=== PATIENT | male | born 1935 | race Hispanic/Latino ===

== ENCOUNTER 2019-03-21 19:08 | Observation (INO) | payer MEDICARE, BC ==
--- NOTE | 2019-03-21 19:42 | RAD ---
TWO VIEW CHEST: 03/21/19 HISTORY: Chest tightness. The lung mares are clear. No infiltrate or vascular congestion. Heart and mediastinum unremarkable. Old right sided rib fractures. IMPRESSION: No acute finding. POS: [facility]
[2019-03-21 19:50] LABS: #Basophils 0.1 thou/uL (0.0-0.2); #Eosinphils 0.2 thou/uL (0.0-0.7); #Monocytes 0.5 thou/uL (0.11-0.59); #Neutrophils 4.4 thou/uL (1.40-6.50); %Basophils 0.8 % (0.0-1.0); %Lymphocytes 37.1 % (21.0-51.0); %Neutrophils 54.1 % (42.0-75.0); Hemoglobin 12.1 g/dL (14.0-18.0); Mean Corpuscular HGB CONC 33.1 g/dL (32.0-36.0); Mean Corpuscular Hemoglobin 28.9 pg (27.0-31.0); Mean Corpuscular Volume 87.3 fL (78.0-98.0); Mean Platelet Volume 9.7 fL (7.4-10.4); Platelet Count 143 thou/uL (130-400); RBC Distribution Width 14.8 % (11.5-14.5); White Blood Cell (WBC) Count 8.1 thou/uL (4.8-10.8)
[2019-03-21 20:12] LABS: ALT (SGPT) 18 U/L (8-55); AST (SGOT) 22 U/L (5-34); Albumin 4.4 g/dL (3.4-4.8); Alkaline Phosphatase 63 U/L (40-150); Anion Gap 14 mmol/L (10-20); BUN (Urea Nitrogen) 15 mg/dL (8.4-25.7); Bilirubin, Total 0.3 mg/dL (0.2-1.2); CK (CPK) 225 U/L (30-200); Calc. Creatinine Clearance 0 mL/min (70-130); Calcium 9.2 mg/dL (7.8-10.44); Carbon Dioxide 23 mmol/L (23-31); Chloride 103 mmol/L (98-107); Estimated GFR-MDRD 62; Globulin 3.4 g/dL (2.4-3.5); Glucose 147 mg/dL (83-110); Lipase 30 U/L (8-78); Potassium 3.9 mmol/L (3.5-5.1); Protein, Total 7.8 g/dL (5.8-8.1); Sodium 136 mmol/L (136-145)
[2019-03-21] MEDS ORDERED: Aspirin Chewable 81 MG TAB ONE (20:18)
[2019-03-21 21:48] LABS: Troponin I Less than 0.010 ng/mL (< 0.028)
[2019-03-21 22:56] VITALS: BMI 30.8
[2019-03-22] MEDS: Acetaminophen 325 MG TAB PO PRN ×2 (02:42→17:33)
[2019-03-22 02:55] LABS: Troponin I Less than 0.010 ng/mL (< 0.028)
[2019-03-22] MEDS ORDERED: Dextrose 50% Abboject 50 ML SYRINGE SLOW IVP PRN (04:02)
[2019-03-22] MEDS ORDERED: Insulin Regular 300 UNITS/3 ML VIAL SC PRN (04:02)
[2019-03-22] MEDS ORDERED: Dextrose 5% in Water 1,000 ML IV PRN (04:02)
--- NOTE | 2019-03-22 04:54 | HP ---
PRIMARY CARE PROVIDER: Dr. James Eng. CHIEF COMPLAINT: Chest pain. HISTORY OF PRESENT ILLNESS: Mr. Gallo is a pleasant 83-year-old gentleman, who was seen at [facility] on March 22, 2019. He reports that he used to see Dr. Sepulveda for Cardiology in the early . He reports having cardiac catheterization. He was told that he had 50% to 65% blockages in some of the vessels. He did not need stents at the time. He was lost to Cardiology for followup. He got into an argument with his grandson around 6:30 p.m. yesterday. He reports that following the argument, he started having chest pain. He describes it as across his chest, dull, pressure-like, accompanied by shortness of breath, no known relieving factors. He denies any fevers or chills. Chest pain appears to have lasted until around 10:00 p.m. It was nonradiating. It was not accompanied by nausea or vomiting. REVIEW OF SYSTEMS: All other systems reviewed and found to be negative. PAST MEDICAL HISTORY: Diabetes mellitus type 2, gastroesophageal reflux disease, hypertension, glaucoma, and obstructive sleep apnea syndrome. PAST SURGICAL HISTORY: Bilateral cataract surgery. PSYCHIATRIC HISTORY: Anxiety and depression. SOCIAL HISTORY: The patient denies tobacco use or recreational drug use. He reports weekly alcohol use. CODE STATUS: I discussed his code status. He is full code. FAMILY HISTORY: Significant for heart murmur in his younger brother. ALLERGIES: NO KNOWN DRUG ALLERGIES. CURRENT MEDICATIONS: 1. Lantus insulin 28 units 2 times a day. 2. Lovastatin 20 mg at bedtime. 3. Allopurinol 300 mg daily. 4. Losartan 100 mg daily. 5. Oxybutynin 5 mg 2 times a day. 6. Carvedilol 25 mg daily. 7. Amlodipine 5 mg at bedtime. 8. Omeprazole 20 mg daily. 9. Metformin 1000 mg 2 times a day. 10. Dorzolamide/timolol eye drops 2 times a day. 11. Latanoprost eyedrops at bedtime. 12. Refresh eye drops 4 times a day. PHYSICAL EXAMINATION: GENERAL: On examination, Mr. Gallo is awake and alert, not in acute distress. He is obese, with a BMI of 30.8. VITAL SIGNS: Blood pressure is 148/68, pulse is 61, respiratory rate 16, and oxygen saturation 98% on room air. He is afebrile. HEENT: Eyes, no scleral icterus, no conjunctival pallor. ENT: Moist mucosal membranes. No oropharyngeal erythema or exudates. NECK: Supple, nontender, trachea is midline. RESPIRATORY: Accessory muscles of breathing are not active. Chest wall movements are symmetric bilaterally. LUNGS: Clear to auscultation without wheeze, rhonchi, or crepitations. CARDIOVASCULAR: S1 and S2 are heard, regular. Peripheral pulses palpable. No carotid bruit. No pericardial rub. ABDOMEN: Soft, nontender, bowel sounds are heard. NEUROLOGIC: Cranial nerves 2 through 12 intact, deep tendon reflexes 2+. MUSCULOSKELETAL: Power is 5/5 in all 4 extremities. SKIN: No rashes or subcutaneous nodules. LYMPHATIC: No cervical lymphadenopathy. PSYCHIATRIC: Normal mood, normal affect. The patient is oriented to person, place, and time. LABORATORY DATA: Mr. Gallo' labs and investigations were reviewed. I reviewed his electrocardiogram, which showed normal sinus rhythm, no ST changes to suggest an acute coronary syndrome. I also reviewed his chest x-ray, which did not show any pulmonary infiltrates. He has normal white count, normocytic anemia with hemoglobin 12.1, normal platelet count, elevated CK of 225, unremarkable comprehensive metabolic profile, normal lipase, and troponin I that is negative x3. ASSESSMENT AND PLAN: Mr. Gallo is a pleasant 83-year-old gentleman, who was seen at [facility] on March 22, 2019. His problem list includes; 1. Chest pain: Mr. Gallo presented to the emergency room complaining of chest pain. He will be admitted to the hospital for further management. Given his significant risk factors, we will obtain nuclear stress test. 2. Diabetes mellitus type 2: We will start him on Accu-Cheks and insulin sliding scale, continue home medications. 3. Hypertension: Resume home medications, monitor vital signs and titrate antihypertensives as needed. 4. Benign prostate hypertrophy: Continue tamsulosin. 5. Glaucoma: Continue eye drops as at home. Many thanks for allowing me to participate in your patient's care. Please feel free to contact me with any questions or concerns. LEVEL OF RISK: High. LEVEL OF COMPLEXITY: High. Job ID: [id number]
[2019-03-22 07:50] LABS: #Eosinphils 0.2 thou/uL (0.0-0.7); #Lymphocytes 2.3 thou/uL (1.20-3.40); #Monocytes 0.5 thou/uL (0.11-0.59); #Neutrophils 3.1 thou/uL (1.40-6.50); %Basophils 0.6 % (0.0-1.0); %Eosinophils 2.9 % (0.0-10.0); %Lymphocytes 38.5 % (21.0-51.0); %Monocytes 7.5 % (0.0-10.0); %Neutrophils 50.4 % (42.0-75.0); Hemoglobin 12.2 g/dL (14.0-18.0); Mean Corpuscular HGB CONC 33.1 g/dL (32.0-36.0); Mean Corpuscular Hemoglobin 28.8 pg (27.0-31.0); Mean Corpuscular Volume 87.1 fL (78.0-98.0); Mean Platelet Volume 9.5 fL (7.4-10.4); Platelet Count 144 thou/uL (130-400); Red Blood Cell (RBC) Count 4.23 mill/uL (4.70-6.10); White Blood Cell (WBC) Count 6.1 thou/uL (4.8-10.8)
[2019-03-22 08:04] LABS: Anion Gap 10 mmol/L (10-20); BUN (Urea Nitrogen) 13 mg/dL (8.4-25.7); Calc. Creatinine Clearance 92 mL/min (70-130); Calcium 9.3 mg/dL (7.8-10.44); Carbon Dioxide 26 mmol/L (23-31); Chloride 106 mmol/L (98-107); Estimated GFR-MDRD 88; Glucose 99 mg/dL (83-110); Sodium 138 mmol/L (136-145)
[2019-03-22] MEDS: Carvedilol 6.25 MG TAB PO SCH ×2 (08:16→17:00)
[2019-03-22] MEDS ORDERED: Losartan 25 MG TAB PO SCH (09:00)
[2019-03-22] MEDS ORDERED: Carvedilol 25 MG TAB PO SCH (09:00)
[2019-03-22] MEDS ORDERED: Allopurinol 300 MG TAB PO SCH (09:00)
[2019-03-22] MEDS ORDERED: Aspirin 81 mg Enteric Coated Tablet PO SCH (09:00)
[2019-03-22] MEDS ORDERED: Tamsulosin HCl 0.4 MG CAP PO SCH ×2 (09:00→21:00)
[2019-03-22] MEDS ORDERED: Dextrose 5 % And 0.9 % NaCl 1,000 ML IV SCH (10:00)
[2019-03-22] MEDS ORDERED: ADENOSINE 60 MG/20 ML VIAL ONE (10:37)
--- NOTE | 2019-03-22 11:42 | CON ---
DATE OF CONSULTATION: 03/22/2019 REASON FOR CONSULTATION: Chest pressure. HISTORY OF PRESENT ILLNESS: This is a very pleasant 83-year-old gentleman with history of diabetes mellitus, who recently presented with chest pressure. He states that it lasted for 2 hours. No nausea, vomiting, or associated symptoms. He states it resolved once he was seen and evaluated in the emergency room. The pain is described as mild to moderate. He does have longstanding diabetes mellitus. He also underwent coronary angiography [address] Cesar Sepulveda with moderate coronary artery disease. PAST MEDICAL HISTORY: 1. Diabetes mellitus. 2. Hypertension. 3. Glaucoma. 4. Acid reflux. 5. Obstructive sleep apnea. 6. Cataract surgery. SOCIAL HISTORY: No current tobacco or alcohol use. ALLERGIES: NONE. FAMILY HISTORY: Negative for CAD. HOME MEDICATIONS: 1. Lantus. 2. Lovastatin. 3. Allopurinol. 4. Losartan. 5. Oxybutynin. 6. Carvedilol. 7. Amlodipine. 8. Omeprazole. 9. Metformin. REVIEW OF SYSTEMS: A 10-point review of systems is reviewed and as above, otherwise negative. PHYSICAL EXAMINATION: GENERAL: Patient is a pleasant gentleman, who is in no acute distress. The patient appears their stated age. VITAL SIGNS: Blood pressure 177/76, pulse 57, temperature 97.5. NEUROLOGIC: The patient is alert and oriented x3 with no focal neurologic deficits. HEENT: Sclerae without icterus. Mouth has moist mucous membranes with normal pallor. NECK: No JVD. Carotid upstroke brisk. No bruits bilaterally. LUNGS: Clear to auscultation with unlabored respirations. BACK: No scoliosis or kyphosis. CARDIAC: Regular rate and rhythm with normal S1 and S2. No S3 or S4 noted. No significant rubs, murmurs, thrills, or gallops noted throughout the precordium. PMI is not displaced. There is no parasternal heave. ABDOMEN: Soft, nontender, nondistended. No peritoneal signs present. No hepatosplenomegaly. No abnormal striae. EXTREMITIES: 2+ femoral and 2+ dorsalis pedis pulses. No cyanosis, clubbing, or edema. SKIN: No gross abnormalities. DIAGNOSTIC STUDIES: EKG, normal sinus rhythm with right bundle-branch block. Nonspecific ST-T wave changes. Troponin negative. IMPRESSION: 1. Atypical chest pain. 2. Diabetes mellitus. 3. Moderate coronary artery disease. RECOMMENDATIONS: We would agree with proceeding with a noninvasive stress study to assess for any areas of ischemia. At this point, given from his assessment of his LVEF in addition to an assessment of ischemia, we will defer any further recommendations until the findings. If the findings are felt to be at low risk, we will therefore treat medically. If findings are felt to be at high risk, we then proceed with coronary angiography. Job ID: [id number]
--- NOTE | 2019-03-22 11:50 | PDOC.PN ---
- Subjective Encounter Start Date: 03/22/19 Encounter Start Time: 11:48 Subjective: Patient very much emotionally and mentally stressed due to an argument and -: taking care of his 39 yo grandson who is unemployed. Patient reports having -: constipation for 2 days usually goes daily. Has mild abdominal discomfort but feels this is due to stress. Very anxious about waiting for stress test this morning. Denies any chest pain or sob at present. No headaches or dizziness. No nausea or vomiting. Currently fasting but has had no issues eating last night. - Objective MAR Reviewed: Yes Vital Signs & Weight: Vital Signs (12 hours) Temp Pulse Resp BP Pulse Ox 03/22/19 08:00 97.7 F 57 L 14 177/76 H 97 03/22/19 04:02 98 03/22/19 04:00 97.8 F 59 L 16 165/74 H 98 03/22/19 00:00 97.9 F 61 16 148/68 H 98 Weight Weight 208 lb 9.6 oz I&O: 03/21/19 03/22/19 03/23/19 06:59 06:59 06:59 Intake Total 420 Balance 420 Result Diagrams: 03/22/19 07:39 03/22/19 07:39 Additional Labs: Accuchecks 03/22/19 03/22/19 03/22/19 10:42 08:03 04:58 POC Glucose 106 100 105 03/21/19 23:40 POC Glucose 191 H Phys Exam - Physical Examination appears emotionally stressed/worried HEENT: PERRLA, moist MMs, oral pharynx no lesions Neck: no nodes, no JVD, supple, full ROM Respiratory: clear to auscultation bilateral Cardiovascular: RRR Gastrointestinal: soft, no distention, positive bowel sounds mild left lower abdominal discomfort, no guarding or rigidity Musculoskeletal: no edema, pulses present Neurological: non-focal, normal sensation, moves all 4 limbs Lymphatic: no nodes Psychiatric: normal affect, A&O x 3 Skin: no rash, normal turgor, cap refill <2 seconds Dx/Plan (1) Atypical chest pain Code(s): R07.89 - OTHER CHEST PAIN Status: Resolved Plan: Seen by Dr. Cuevas. Awaiting stress test. Troponin negative x 3. (2) Under emotional stress Status: Acute Plan: Patient states he has support with his daughters. They are making arrangements for his grandson. He is agreeable to speak to someone as an outpatient for anxiety/depression. (3) Diabetes Code(s): E11.9 - TYPE 2 DIABETES MELLITUS WITHOUT COMPLICATIONS Status: Chronic Qualifiers: Diabetes mellitus type: type 2 Diabetes mellitus truck terminal manager insulin use: with truck terminal manager use Plan: Continue to ISS, monitor glucose. (4) Hypertension Code(s): I10 - ESSENTIAL (PRIMARY) HYPERTENSION Status: Chronic Qualifiers: Hypertension type: essential hypertension Qualified Code(s): I10 - Essential (primary) hypertension Plan: Continue home meds. Monitor BP. (5) Constipation Code(s): K59.00 - CONSTIPATION, UNSPECIFIED Status: Acute Plan: Stool softener. No n/v, mild abdo discomfort, no distention. Assess if he tolerates food after stress test. (6) CAD (coronary artery disease) Code(s): I25.10 - ATHSCL HEART DISEASE OF [place] CORONARY ARTERY W/O ANG PCTRS Status: Chronic Qualifiers: Coronary Disease-Associated Artery/Lesion type: [place] artery [place] vs. transplanted heart: [place] heart (7) BPH (benign prostatic hyperplasia) Code(s): N40.0 - BENIGN PROSTATIC HYPERPLASIA WITHOUT LOWER URINRY TRACT SYMP Status: Chronic Qualifiers: Lower urinary tract symptom presence: symptoms absent Qualified Code(s): N40.0 - Benign prostatic hyperplasia without lower urinary tract symptoms - Plan cont current plan of care, out of bed/ambulate stress test is -ve -: continue asp, norvasc, cozaar, norvasc, flomax, lovastatin and coreg -: I have seen and examined patient and agree with above documentation -: Has underlying depression, d/w daughter and they will arrange for outpt - -: -psychiatrist/counselling. Is hemodynamically stable and will dc home * .
[2019-03-22] MEDS ORDERED: Hydrochlorothiazide 25 MG TAB PO SCH (12:00)
[2019-03-22 16:02] VITALS: TEMP 97.5
[2019-03-22 17:02] VITALS: BP 169/74
--- NOTE | 2019-03-22 17:54 | NM ---
MYOCARDIAL PERFUSION SCAN: 03/22/19 The patient was given technetium labeled Sestamibi according to Adenosine protocol. Stress and rest i mages obtained. INDICATIONS: Chest pain. FINDINGS: There is normal activity throughout the left ventricle on stress and rest imaging. No evidence of rev ersible ischemia. Wall motion appears normal. Ejection fraction recorded at over 60%. IMPRESSION: No evidence of reversible ischemia. POS: OFF
[2019-03-22] MEDS ORDERED: Senokot S 8.6-50 MG TAB PO SCH (21:00)
[2019-03-22] MEDS ORDERED: Amlodipine 5 MG TAB PO SCH (21:00)
== END 2019-03-22 19:29 | disposition home or self-care (01) ==
LOC: ERS 19:08 → 2SE 22:28
PROVIDERS: ADMIT Internal Medicine; ATTEND Internal Medicine
DX: R07.89 Other chest pain (principal); I10 Essential (primary) hypertension; E11.9 Type 2 diabetes mellitus without complications; H40.9 Unspecified glaucoma; G47.33 Obstructive sleep apnea (adult) (pediatric); K21.9 Gastro-esophageal reflux disease without esophagitis; F41.8 Other specified anxiety disorders; F32.9 Major depressive disorder, single episode, unspecified; N40.0 Benign prostatic hyperplasia without lower urinary tract symptoms; E66.9 Obesity, unspecified; Z68.30 Body mass index [BMI] 30.0-30.9, adult; Z79.4 Long term (current) use of insulin; Z79.899 Other long term (current) drug therapy
CPT/HCPCS: 71046; 78452; 80048; 80053; 82550; 82962 ×2; 83690; 83880; 84484 ×3; 85025 ×2; 93005; 93017; 94760; 99285; A9500; G0378 ×2; 36415; 36416; J0153

== ENCOUNTER 2019-04-11 15:02 | Outpatient (CLI) | payer MEDICARE, BC ==
--- NOTE | 2019-04-11 15:29 | RAD ---
Radiograph right hip 2 views: HISTORY: 84-year-old male with right hip pain FINDINGS: Mild to moderate joint space narrowing at superior aspect of the joint. Mild to moderate sclerosis an d mild bony hypertrophy of acetabular roof with small subchondral cysts. No femoral head collapse. Tiny subcapital osteophyte. No fracture or dislocation. 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
--- NOTE | 2019-04-11 15:35 | RAD ---
RADIOGRAPH LUMBAR SPINE 2 VIEWS: DATE: 04/11/2019 HISTORY: 84-year-old male with low back pain and lumbar radiculopathy, sciatica FINDINGS: 5 lumbar-type vertebrae. Vertebral body heights are maintained. No high-grade scoliosis. Small to mod erate-sized endplate marginal osteophytes throughout mid and lower levels. Bilateral facet DJD at lower levels. Disc space narrowing, mild to moderate at L3-4 and L4-5, and moderate to severe at L5-S1. Vacuum disc phenomenon and endplate sclerosis at L5-S1. Grade 1 anterolisthesis of L5 on S1.. IMPRESSION: 1. Lumbar spondylosis: Lower level degenerative disc disease and facet osteoarthrosis, especially at L5-S1. 2. Grade 1 spondylolisthesis at L5-S1..
== END 2019-04-11 15:03 | disposition home or self-care (01) ==
LOC: BICRAD 15:02
PROVIDERS: ATTEND Physician Assistant
DX: M25.551 Pain in right hip (principal); M54.31 Sciatica, right side; M16.11 Unilateral primary osteoarthritis, right hip
CPT/HCPCS: 72100

== ENCOUNTER 2019-09-17 10:55 | Outpatient (CLI) | payer MEDICARE, BC ==
--- NOTE | 2019-09-17 11:59 | RAD ---
XR Temporamandibular Joints History: Jaw pain Comparison: None. Findings: The right temporomandibular joint appears be subluxed. No acute fracture. Right temporomand ibular joint has normal excursion. Impression: Anteriorly subluxed right temporomandibular joint.
== END 2019-09-17 10:56 | disposition home or self-care (01) ==
LOC: BICRAD 10:55
PROVIDERS: ATTEND Family Medicine
DX: R68.84 Jaw pain (principal); S03.01XA Dislocation of jaw, right side, initial encounter
CPT/HCPCS: 70330

== ENCOUNTER 2020-11-24 12:37 | Emergency (ER) | payer MEDICARE, BC ==
--- NOTE | 2020-11-24 13:28 | RAD ---
Portable frontal chest radiograph: 11/24/2020 COMPARISON: 07/13/2014 HISTORY: Weakness, elevated blood pressure FINDINGS: There is stable atherosclerotic calcification of the aortic arch and prominence of the card iac silhouette. Mild diffuse nonspecific increased linear interstitial density noted. Nodular densities in the lung bases suggest probable nipple shadows. No focal consolidation or alveol ar edema. IMPRESSION: No focal consolidation or alveolar edema.
[2020-11-24 13:38] LABS: #Basophils 0.1 thou/uL (0.0-0.2); #Eosinphils 0.1 thou/uL (0.0-0.7); #Monocytes 0.6 thou/uL (0.11-0.59); #Neutrophils 4.8 thou/uL (1.40-6.50); %Basophils 0.8 % (0.0-1.0); %Eosinophils 1.9 % (0.0-10.0); %Lymphocytes 26.7 % (21.0-51.0); %Monocytes 8.3 % (0.0-10.0); %Neutrophils 62.4 % (42.0-75.0); Hemoglobin 11.3 g/dL (14.0-18.0); Mean Corpuscular HGB CONC 33.4 g/dL (32.0-36.0); Mean Corpuscular Hemoglobin 27.6 pg (27.0-31.0); Mean Corpuscular Volume 82.7 fL (78.0-98.0); Mean Platelet Volume 10.1 fL (7.4-10.4); Platelet Count 146 thou/uL (130-400); RBC Distribution Width 14.5 % (11.5-14.5); Red Blood Cell (RBC) Count 4.11 mill/uL (4.70-6.10); White Blood Cell (WBC) Count 7.6 thou/uL (4.8-10.8)
[2020-11-24 13:58] LABS: ALT (SGPT) 13 U/L (8-55); AST (SGOT) 14 U/L (5-34); Albumin 3.7 g/dL (3.4-4.8); Alkaline Phosphatase 48 U/L (40-110); Anion Gap 13 mmol/L (10-20); BUN (Urea Nitrogen) 19 mg/dL (8.4-25.7); Bilirubin, Total 0.3 mg/dL (0.2-1.2); Calc. Creatinine Clearance 0 mL/min (70-130); Calcium 8.3 mg/dL (7.8-10.44); Carbon Dioxide 23 mmol/L (23-31); Chloride 103 mmol/L (98-107); Globulin 3.2 g/dL (2.4-3.5); Glucose 318 mg/dL (83-110); Potassium 4.3 mmol/L (3.5-5.1); Protein, Total 6.9 g/dL (5.8-8.1); Sodium 135 mmol/L (136-145)
[2020-11-24 16:38] LABS: Bilirubin Negative (Negative); Blood, Urine Negative (Negative); Clarity Clear (Clear); Glucose, Urine (Dipstick) 300 mg/dL (Negative); Ketone, Urine Negative (Negative); Leukocyte Negative Leu/uL (Negative); Nitrite Negative (Negative); Protein, Urine (Dipstick) 20 mg/dL (Neg-Trace); Specific Gravity, Urine 1.015 (1.002-1.036); Urobilinogen Normal mg/dL (Less than 2)
--- NOTE | 2020-11-27 18:14 | EKG ---
Test Reason : Blood Pressure : / mmHG Vent. Rate : 064 BPM Atrial Rate : 064 BPM P-R Int : 182 ms QRS Dur : 138 ms QT Int : 442 ms P-R-T Axes : 000 -06 -15 degrees QTc Int : 455 ms Normal sinus rhythm Left ventricular hypertrophy with QRS widening T wave abnormality, consider anterior ischemia Abnormal ECG Confirmed by GHAZAL Devi, GUY ([id number]), online content editor [place] VELASCO ([id number]) on 11/27/2020 6:13:58 PM Referred By: GHAZAL Confirmed By:GUY HARMAN M.D.
== END 2020-11-24 17:32 | disposition home or self-care (01) ==
LOC: ERS 12:37
DX: E11.65 Type 2 diabetes mellitus with hyperglycemia (principal); K21.9 Gastro-esophageal reflux disease without esophagitis; I10 Essential (primary) hypertension; Z79.4 Long term (current) use of insulin; Z79.899 Other long term (current) drug therapy
CPT/HCPCS: 36415; 36416; 71045; 80053; 81003; 84484; 85025; 93005; 94760

== ENCOUNTER 2021-02-15 09:50 | Outpatient (CLI) | payer MEDICARE, BC ==
[2021-02-15 11:24] LABS: Hemoglobin 11.2 g/dL (13.5-17.5); Mean Corpuscular HGB CONC 30.4 g/dL (32.0-36.0); Mean Corpuscular Hemoglobin 23.9 pg (27.0-33.0); Mean Corpuscular Volume 78.7 fl (81.2-95.1); Mean Platelet Volume 11.9 fl (7.4-10.4); Platelet Count 183 10x3/uL (150-450); RBC Distribution Width 16.5 % (11.5-14.5); Red Blood Cell (RBC) Count 4.69 10x6/uL (4.32-5.72); White Blood Cell (WBC) Count 7.5 10x3/uL (3.5-10.5)
[2021-02-15 11:42] LABS: Bilirubin Neg (Negative); Blood, Urine 10 (Negative); Clarity Clear (Clear); Glucose, Urine (Dipstick) Normal (Negative); Ketone, Urine Negative (Negative); Leukocyte Negative (Negative); Nitrite Negative (Negative); Protein, Urine (Dipstick) 15 mg/dl (Neg-Trace); Urobilinogen Normal mg/dL (Less than 2)
[2021-02-15 11:56] LABS: Anion Gap 14 mmol/L (10-20); BUN (Urea Nitrogen) 14 mg/dL (8.4-25.7); Calc. Creatinine Clearance 0 mL/min (70-130); Calcium 9.1 mg/dL (7.8-10.44); Carbon Dioxide 27 mmol/L (23-31); Chloride 102 mmol/L (98-107); Glucose 193 mg/dL (83-110); Potassium 4.8 mmol/L (3.5-5.1); Sodium 138 mmol/L (136-145)
[2021-02-15 11:57] LABS: Prothrombin Time 11.5 sec (9.5-12.1)
[2021-02-15 12:20] LABS: Bacteria/HPF None Seen HPF (None Seen); RBC/HPF 0-3 HPF (0-3); Squamous Epithelial None Seen HPF (0-3); WBC/HPF None Seen HPF (0-3)
[2021-02-15 20:40] LABS: SARS-CoV-2 PCR by NAA Not Detected (NotDetected)
== END 2021-02-15 09:51 | disposition home or self-care (01) ==
LOC: LABBT 09:50
PROVIDERS: ATTEND Urology
DX: Z01.818 Encounter for other preprocedural examination (principal); N40.1 Benign prostatic hyperplasia with lower urinary tract symptoms; N32.81 Overactive bladder; R35.0 Frequency of micturition; F41.8 Other specified anxiety disorders; E11.65 Type 2 diabetes mellitus with hyperglycemia; H40.9 Unspecified glaucoma; G47.33 Obstructive sleep apnea (adult) (pediatric); Z20.822 Contact with and (suspected) exposure to COVID-19
CPT/HCPCS: 80048; 81001; 85027; 85610; 85730; 87086; 93005; U0003; U0005; 87635; 93010

== ENCOUNTER 2021-02-18 06:04 | Day surgery (SDC) | payer MEDICARE, BC ==
[2021-02-17 10:41] VITALS: BMI 31.4
[2021-02-18] MEDS ORDERED: Fentanyl 100 MCG/2 ML VIAL ONE (06:24)
[2021-02-18] MEDS ORDERED: Famotidine/PF 20 mg/2ml Vial ONE (06:24)
[2021-02-18] MEDS ORDERED: Levofloxacin 500 mg/D5W 100 ml Premix Bag ONE (06:26)
[2021-02-18] MEDS ORDERED: B & O ONE (07:22)
[2021-02-18] MEDS ORDERED: PROPOFOL 200 MG/20 ML VIAL ONE (07:33)
[2021-02-18] MEDS ORDERED: Metoclopramide HCl 10 MG/2 ML VIAL ONE (07:33)
[2021-02-18] MEDS ORDERED: Lidocaine 1% PF 5 ML VIAL ONE (07:33)
[2021-02-18] MEDS ORDERED: Ondansetron PF 4 MG/2 ML Vial ONE (07:33)
== END 2021-02-18 10:41 | disposition home or self-care (01) ==
LOC: SDC 06:04
PROVIDERS: ATTEND Urology
PROC: 0T7D8DZ Dilation of Urethra with Intraluminal Device, Via Natural or Artificial Opening Endoscopic (ICD-10-PCS; principal; 2021-02-18)
DX: N40.1 Benign prostatic hyperplasia with lower urinary tract symptoms (principal); N13.8 Other obstructive and reflux uropathy; N32.81 Overactive bladder; I10 Essential (primary) hypertension; E11.9 Type 2 diabetes mellitus without complications; K21.9 Gastro-esophageal reflux disease without esophagitis; M10.9 Gout, unspecified; G47.33 Obstructive sleep apnea (adult) (pediatric); H40.9 Unspecified glaucoma; Z79.4 Long term (current) use of insulin; Z79.899 Other long term (current) drug therapy
CPT/HCPCS: C9740; L8699; J1956; J2405; J2704; J2765; J3010; S0028

== ENCOUNTER 2021-05-15 13:14 | Emergency (ER) | payer MEDICARE, BC ==
[2021-05-15 21:03] LABS: SARS-CoV-2 PCR by NAA DETECTED (NotDetected)
== END 2021-05-15 15:30 | disposition home or self-care (01) ==
LOC: ERS 13:14
DX: J02.9 Acute pharyngitis, unspecified (principal); E11.9 Type 2 diabetes mellitus without complications; K21.9 Gastro-esophageal reflux disease without esophagitis; I10 Essential (primary) hypertension; Z79.4 Long term (current) use of insulin; Z20.822 Contact with and (suspected) exposure to COVID-19; Z79.899 Other long term (current) drug therapy
CPT/HCPCS: 82962; U0003; U0005; 36416; 99283

== ENCOUNTER 2023-12-10 06:56 | Emergency (ER) | payer MEDICARE, BC ==
[2023-12-10] MEDS ORDERED: Ondansetron PF 4 MG/2 ML Vial ONE (09:33)
[2023-12-10 09:34] LABS: ALT (SGPT) 10 U/L (8-55); AST (SGOT) 25 U/L (5-34); Albumin 4.1 g/dL (3.4-4.8); Alkaline Phosphatase 57 U/L (40-110); Anion Gap 15 mmol/L (10-20); BUN (Urea Nitrogen) 24 mg/dL (8.4-25.7); Bilirubin, Total 0.5 mg/dL (0.2-1.2); Calc. Creatinine Clearance 0 mL/min (70-130); Calcium 9.2 mg/dL (7.8-10.44); Carbon Dioxide 18 mmol/L (23-31); Chloride 108 mmol/L (98-107); Estimated GFR 68; Globulin 3.4 g/dL (2.4-3.5); Glucose 145 mg/dL (83-110); Potassium 4.6 mmol/L (3.5-5.1); Protein, Total 7.5 g/dL (5.8-8.1); Sodium 136 mmol/L (136-145)
[2023-12-10 09:37] LABS: Troponin I 0.011 ng/mL (< 0.028)
[2023-12-10] MEDS ORDERED: ISOVUE-370 76% MDV (1 ML CHARGE) ONE (09:43)
[2023-12-10 10:13] LABS: #Eosinphils 0.1 thou/uL (0.0-0.7); #Monocytes 0.6 thou/uL (0.11-0.59); #Neutrophils 8.3 thou/uL (1.40-6.50); %Basophils 0.3 % (0.0-1.0); %Lymphocytes 10.4 % (21.0-51.0); %Monocytes 5.7 % (0.0-10.0); %Neutrophils 82.3 % (42.0-75.0); Hematocrit 37.4 % (42.0-52.0); Hemoglobin 12.3 g/dL (14.0-18.0); Mean Corpuscular HGB CONC 32.9 g/dL (32.0-36.0); Mean Corpuscular Hemoglobin 28.1 pg (27.0-31.0); Mean Corpuscular Volume 85.4 fl (78.0-98.0); Mean Platelet Volume 13.1 fL (7.4-10.4); Platelet Count 148 10x3/uL (130-400); RBC Distribution Width 15.9 % (11.5-14.5); Red Blood Cell (RBC) Count 4.38 mill/uL (4.70-6.10); White Blood Cell (WBC) Count 10.1 10x3/uL (4.8-10.8)
[2023-12-10 10:33] LABS: Bacteria/HPF None Seen HPF (None Seen); Bilirubin Negative (Negative); Blood, Urine Negative (Negative); CAUTI Indications for Culture Alt mental st,lethar; Clarity Clear (Clear); Glucose, Urine (Dipstick) Normal (Negative); Ketone, Urine Negative (Negative); Leukocyte Negative Leu/uL (Negative); Nitrite Negative (Negative); Protein, Urine (Dipstick) Negative (Neg-Trace); RBC/HPF 0-3 HPF (0-3); Squamous Epithelial None Seen HPF (0-3); Urobilinogen Normal mg/dL (Less than 2); WBC/HPF 0-3 HPF (0-3)
[2023-12-10] MEDS ORDERED: Metoclopramide HCl 10 MG (2 mL) VIAL ONE (10:35)
[2023-12-10 10:38] LABS: Urine Culture Reflex No No
[2023-12-10 11:04] LABS: Influenza A by NAA Not Detected (NotDetected); Influenza B by NAA Not Detected (NotDetected); SARS-CoV-2 NAA Rapid Test Not Detected (NotDetected)
== END 2023-12-10 11:45 | disposition home or self-care (01) ==
LOC: ERS 06:56
DX: K52.9 Noninfective gastroenteritis and colitis, unspecified (principal); K80.20 Calculus of gallbladder without cholecystitis without obstruction; I10 Essential (primary) hypertension; E11.9 Type 2 diabetes mellitus without complications; K21.9 Gastro-esophageal reflux disease without esophagitis; H91.90 Unspecified hearing loss, unspecified ear; E78.5 Hyperlipidemia, unspecified; Z79.84 Long term (current) use of oral hypoglycemic drugs; Z79.4 Long term (current) use of insulin; Z79.899 Other long term (current) drug therapy; M79.604 Pain in right leg
CPT/HCPCS: 0240U; 71045; 74177; 80053; 81001; 83605; 83690; 84484; 85025; 93005; 93971; 96361; 96374; 96375; 99284; J2405; J2765